=== PATIENT | male | born 2000 | race Caucasian/White ===

== ENCOUNTER 2021-05-12 18:22 | Emergency (ER) | payer SELFPAY ==
[2021-05-12 18:25] VITALS: BP 165/84; PULSE 108; RESP 16; TEMP 37.5; O2SAT 96
--- NOTE | 2021-05-12 18:40 | W.ED.GENAD ---
Discharge Plan Disposition Patient Disposition: HOME Condition: Stable Discharge Details Clinical Impression: Exudative pharyngitis Primary Care Provider: Rosalba,Local ED Provider: Lorena Marti Home Meds and New Rx's Prescriptions: New penicillin V potassium 500 mg tablet 500 mg PO BID 10 Days Qty: 20 RF: 0 Discharge Instructions Instructions: Pharyngitis (ED), Strep Throat (ED) Additional Instructions: Gargle with warm salt water 3 times daily. Take antibiotic as directed twice daily for the next 10 days. Eat yogurt or take a probiotic while on antibiotics. Return to the ER for any problem swallowing, worsening sore throat, fever or any concerns. Follow up with primary care provider in 3-5 days. Return to ED sooner if any worsening or concerns. Increase oral fluids. Please take Tylenol or Ibuprofen with food every 4-6 hours as needed for pain and swelling. Medical Decision Making 21-year-old male presents the ER complaint of sore throat and white patches on throat for the last few days. Due to patient's clinical picture signs and symptoms I do suspect strep throat. Rapid strep negative, will send for a screen We will give penicillin p.o. here in the department and dexamethasone 10 mg. Instructed to gargle with warm salt water 3 times daily. Patient verbalizes understanding. Remains alert stable throughout stay. This text was generated using [employer]ation system, please disregard any oddities of phrase or misspellings. HPI General Mode of arrival: ambulatory. Date/Time Provider Initiated Documentation: 05/12/21 18:23. Limitations to Documentation: no limitations. Information obtained by: patient and RN notes reviewed. HPI Narrative: 21-year-old male presents the ER chief of sore throat x3 days. He is handling his accretions well denies any sick contacts denies any fever or chills. He has been taking Advil at home. On initial exam he does have bilateral tonsillar swelling with exudate tonsils are approximately 3+ bilaterally uvula is midline. Denies any cough. Related Data Home Medications Medication Instructions Recorded Confirmed penicillin V potassium 500 mg PO BID 10 Days #20 tab 05/12/21 Previous Rx's Medication Instructions Recorded penicillin V potassium 500 mg PO BID 10 Days #20 tab 05/12/21 Allergies Allergy/AdvReac Type Severity Reaction Status Date / Time Influenza Virus Vaccines Allergy Mild Skin Rash Unverified 05/12/21 18:30 General Stated Complaint: Sorethroat GILBERTO: 4 Review of Systems All systems reviewed & are unremarkable except as noted in HPI and below ENT Ears, Nose, Mouth, and Throat: Reports as per HPI, Denies change in voice, Denies otalgia and Reports sore throat [facility] Social History Smoking/Tobacco Use Status: Never Smoking risk assessment performed?: Yes Alcohol Intake: current Alcohol Intake frequency: holidays/special occasions only Drug use: Occasionally Substance use type: marijuana Do you feel safe at home: Yes Do you feel safe in your relationship?: Yes Exam Narrative Exam Narrative: Constitutional: Alert and oriented x3. Appears stated age. Normal body habitus. Head: Normocephalic, no trauma. Eyes: Pupils PERRLA, Red reflex noted, EOM's intact. Eyelids symmetrical without lesions, discharge, or swelling. ENT: Bilateral TM's WNL, External ear normal to inspection, no mastoid TTP, swelling, or erythema, Nasal turbinates WNL, no nasal discharge. Normal dentition, Posterior pharynx erythemic, positive exudate bilaterally tonsils are 3+ bilaterally uvula is midline. Chest: RRR, Normal S1, S2, distal pulses intact. Resp: Lungs clear to auscultation bilaterally, no wheezes, rales, or rhonchi. Musculoskeletal: Normal gait, 5/5 strength to all four extremities. Skin: No suspicious rashes or lesions. Capillary refill less than 2 sec. Neurologic: Cranial nerves II-XII intact. Alert and oriented x 3. DTR's intact. Hematologic/Lymphatic: No ecchymosis, positive cervical lymphadenopathy. Course Vital Signs Vital signs: Vital Signs Temperature 37.5 C 05/12/21 18:25 Pulse 108 H 05/12/21 18:25 Respiratory Rate 16 05/12/21 18:25 Blood Pressure 165/84 H 05/12/21 18:25 Pulse Oximetry 96 05/12/21 18:25 Temperature 37.5 C 05/12/21 18:25 Temperature Source Temporal Artery Scan 05/12/21 18:25 Pulse 108 H 05/12/21 18:25 Respiratory Rate 16 05/12/21 18:25 Respiratory Effort Non-Labored 05/12/21 18:31 Blood Pressure 165/84 H 05/12/21 18:25 Blood Pressure Position Sitting 05/12/21 18:25 Pulse Oximetry 96 05/12/21 18:25 Oxygen Delivery Method Room Air 05/12/21 18:25 Oxygen Flow Rate 0 05/12/21 18:25 Pain Level 5 05/12/21 18:25 Comment 05/12/21 18:25 Lab/Test Results Lab/Test Results: 05/12/21 18:37 Tonsil - Left Group A Streptococcus Culture - Pending POC Strep Test-TOM(Rapid) Start: 05/12/21 18:37 Freq: .Rapid Strep Test Status: Active Protocol: Document 05/12/21 18:39 LL (Rec: 05/12/21 18:39 LL [id number]) Strep test-TOM(Rapid)-POC POC-Strep test-TOM (Rapid) Negative POC-Strep test-TOM (Rapid) Negative
[2021-05-12] MEDS: Dexamethasone 10 MG/ML VIAL PO (18:56)
[2021-05-12] MEDS: Penicillin V POTASSIUM 500 MG TAB PO (18:57)
[2021-05-12] MEDS: Penicillin V POTASSIUM 500 MG TAB, 4 TABS/BTL PO (18:57)
--- NOTE | 2021-05-12 19:57 | NUR.NOTE ---
referral to Care Management to establish pcp 1-2 weeks, strep throat.Nursing Note:
--- NOTE | 2021-05-13 10:10 | CMPROGNOTE_ITS ---
- If Service Date Differs Date of service: 05/13/21 Time of Service: 10:10 Care Management Progress Note Kee is seen in the ED for strep throat. At the request of ED provider, DAR[facility] coordinates a referral to Shraddha Victoria of [facility], on-call provider, to assist Kee in obtaining a follow up appointment and in establishing care with a PCP. Kee is also referred to the [employer] Team Manager at [facility] for assistance ex ploring health insurance options.
== END 2021-05-12 19:04 | disposition home or self-care (01) ==
PROVIDERS: Emergency Provider Registered Nurse Emergency
DX: J02.8 Acute pharyngitis due to other specified organisms (principal)
CPT/HCPCS: 87880; 99283; 87081; J1100

== ENCOUNTER 2022-05-08 06:06 | Emergency (ER) | payer SELFPAY ==
[2022-05-08 06:09] VITALS: BP 132/78; PULSE 89; RESP 18; TEMP 36.7; O2SAT 100
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
--- NOTE | 2022-05-08 06:23 | ED.GENADUL_ITS ---
Discharge Plan Disposition Patient Disposition: STILL A PATIENT Condition: Stable Discharge Details Chief Complaint: GenMedical Clinical Impression: Abscess Primary Care Provider: Rosalba,Local ED Provider: Frantz Felton Home Meds and New Rx's Prescriptions: No Action No Known Home Meds Medical Decision Making 22 yo male with no chronic medical problems comes in with pain near the rectum. He states he noticed constipation Wednesday and started to have pain near his rectum 4 days or so ago and can feel a lump. He has never had this happen before and has been using hemorrhoid cream without relief. On exam he has a 3- 4cm fluctuance near the anal verge posterior midline with some erythema. No drainage on exam. Suspect perianal abscess, will obtain ct to evaluate for deep abscess. pt signed out to oncoming provider pending ct results Differential Diagnosis Differential Diagnosis: perianal abscess, cellulitis HPI General Mode of arrival: ambulatory . Date/Time Provider Initiated Documentation: 05/08/22 06:10 . Limitations to Documentation: no limitations . Information obtained by: patient . History of Present Illness 22 year old M presents to the emergency department with the chief complaint of pain near rectum, Quality is described as aching, Patient started experiencing this day(s) (4) and it has been constant. No relieving factors improve symptom(s), No exacerbating factors reported . Patient notes no other symptoms.. Patient did receive the following treatments prior to arrival, none Related Data Home Medications Medication Instructions Recorded Confirmed Unknown [No Known Home Meds] 05/08/22 05/08/22 Allergies Allergy/AdvReac Type Severity Reaction Status Date / Time Influenza Virus Vaccines Allergy Mild Skin Rash Unverified 05/12/21 18:30 General Stated Complaint: GenMedical GILBERTO: 4 Review of Systems All systems reviewed & are unremarkable except as noted in HPI and below Constitutional Constitutional: Denies chills, Denies fever(s) and Denies weakness Eyes Eyes: Denies loss of vision Cardiovascular Cardiovascular: Denies chest pain and Denies dyspnea Respiratory Respiratory: Denies cough and Denies dyspnea Gastrointestinal Gastrointestinal: Denies abdominal pain, Denies nausea and Denies vomiting Neurologic Neurologic: Denies loss of vision and Denies weakness PFSH All Active Problems (Updated 05/08/22 @ 07:14 by Frantz Felton MD) Exudative pharyngitis (Acute) Abscess (Acute) Social History Smoking/Tobacco Use Status: Never Smoking risk assessment performed?: Yes Alcohol Intake: current Alcohol Intake frequency: holidays/special occasions only Drug use: Occasionally Substance use type: marijuana Do you feel safe at home: Yes Do you feel safe in your relationship?: Yes Exam Const General: no acute distress Orientation: alert HENMT Head: normal to inspection Ears: external ears normal General nose exam: external nose normal Mouth: moist mucous membranes Eyes General: appearance normal, both eyes and all related structures Neck Neck: normal visual inspection Resp Effort & Inspection: normal respiratory effort and able to speak in complete sentences Cardio Rate: regular rate GI Palpation: soft and nontender Skin General skin exam: no rashes or lesions noted Neuro General: patient alert and patient oriented x3 Extrem General: normal to inspection Psych Mental Status: mental status grossly normal Course Vital Signs Vital signs: Vital Signs Temperature 36.7 C 05/08/22 06:09 Pulse 89 05/08/22 06:09 Respiratory Rate 18 05/08/22 06:09 Blood Pressure 132/78 05/08/22 06:09 Pulse Oximetry 100 05/08/22 06:09 Temperature 36.7 C 05/08/22 06:09 Temperature Source Temporal Artery Scan 05/08/22 06:09 Pulse 89 05/08/22 06:09 Respiratory Rate 18 05/08/22 06:09 Respiratory Effort 05/08/22 06:18 Blood Pressure 132/78 05/08/22 06:09 Blood Pressure Position Standing 05/08/22 06:09 Pulse Oximetry 100 05/08/22 06:09 Pain Level 9 05/08/22 06:09 Sign Out Sign Out Data: Sign Out Comment: abscess near anal verge, pending CT to determine depth, may require surgical drainage. Last updated by Frantz Felton MD at 05/08/22 07:12
[2022-05-08] MEDS: Lidocaine 2% Jelly 6 ML SYR TP (06:38)
[2022-05-08] MEDS: Normal Saline 1,000 ML 1000 ML IV (06:38)
[2022-05-08 06:41] LABS: Source Nasal/Nares
[2022-05-08 06:46] LABS: Abs Immature Grans 0.05 10^3/uL (0.0-0.06); Absolute Basophil Count 0.04 10^3/uL (0.0-0.2); Absolute Eosinophil Count 0.15 10^3/uL (0.0-0.7); Absolute Lymphocyte Count 1.29 10^3/uL (1.2-3.4); Absolute Monocyte Count 1.23 10^3/uL (0.1-0.8); Absolute Neutrophil Count 10.92 10^3/uL (1.2-6.7); Basophils % 0.3; Eosinophils % 1.1; HCT 42.5 % (40.0-50.0); HGB 14.8 g/dL (13.5-17.5); Immature Grans % 0.4; Lymphocytes % 9.4; MCH 30.6 pg (27.0-33.0); MCHC 34.8 % (32.0-36.0); MCV 88 fL (80-95); MPV 10.4 fL (8.0-11.0); Neutrophils % 79.8; Platelet Count 236 10^3/uL (130-400); RBC 4.84 10^6/uL (4.36-5.78); RDW 11.8 % (11.8-14.1); RDW-SD 37.7 fL; WBC 13.68 10^3/uL (4.4-10.8)
[2022-05-08] MEDS: Omnipaque 350 MG/ML 100 ML BTL IJ (06:54)
[2022-05-08 06:56] LABS: ALT 38 U/L (16-63); AST 18 U/L (15-37); Alkaline Phosphatase 61 U/L (46-116); Anion Gap 7.8 mmol/L (3-11); BUN 14 mg/dL (7-18); Bilirubin, Total 0.6 mg/dL (0.2-1.0); CO2 28.2 mmol/L (21.0-32.0); CREATININE 0.9 mg/dL (0.70-1.30); Calcium 8.9 mg/dL (8.5-10.1); Chloride 101 mmol/L (98-107); Glucose 104 mg/dL (74-106); Potassium 4.2 mmol/L (3.5-5.1); Sodium 137 mmol/L (136-145); Total Protein 8.7 g/dL (6.4-8.2)
[2022-05-08] MEDS: Normal Saline Flush 10 ML SYR IVP (07:11)
[2022-05-08 07:37] LABS: COVID-19 PCR POSITIVE (Negative)
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
[2022-05-08] MEDS: LORazepam 20 MG/10 ML VIAL IVP (08:36)
[2022-05-08] MEDS: MORPHine 4 MG/ML SYR 2 MG IVP (08:37)
[2022-05-08] MEDS: Amoxicillin 875/Clav. 125 TAB PO (08:37)
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
--- NOTE | 2022-05-08 09:26 | NUR.NOTE ---
Nursing Note: Pt info faxed to [facility] surgical follow up on wednesday for perianal abscess. [place], ED
== END 2022-05-08 10:06 | disposition home or self-care (01) ==
PROVIDERS: Emergency Medicine; Emergency Provider Emergency Medicine
DX: K61.0 Anal abscess (principal); U07.1 COVID-19
CPT/HCPCS: 36415; 46050; 80053; 87635; 96361; 96374; 96375; 99285; 74177; 85025; 99284; J2270; J3490